=== PATIENT | male | born 1980 | race Caucasian/White ===

== ENCOUNTER → 2024-04-18 | Outpatient (CLI) | payer OTHER ==
[~2024-04-18] MED LIST: ISOVUE-300 61% 100ML VIAL As Ordered ONE; LIDOCAINE 1% MDV 20ML VIAL As Ordered ONE; PROHANCE 279.3MG/ML 5ML VIAL As Ordered ONE
== END ==
LOC: M RAD 06:18
PROVIDERS: ATTEND Physician Assistant
DX: M25.552 Pain in left hip (principal); S73.102A Unspecified sprain of left hip, initial encounter; X58.XXXA Exposure to other specified factors, initial encounter; Y92.9 Unspecified place or not applicable
CPT/HCPCS: 27093; 73723; 77002; A9576; Q9967

== ENCOUNTER 2025-06-11 07:19 | Day surgery (SDC) | payer OTHER ==
[~2025-06-11] VITALS: Ht 182.9 cm; Wt 90.7 kg
[~2025-06-11 07:19] MED LIST changes: -ISOVUE-300 61% 100ML VIAL As Ordered ONE; -LIDOCAINE 1% MDV 20ML VIAL As Ordered ONE; +LIDOCAINE 2% 100 MG/5 ML SDV (FOR ANES.) As Ordered ONE; +LISI20TA37 PO; +MILK175T PO; +OMEG10002 PO; +ONDANSETRON 4MG/2ML VIAL As Ordered ONE; -PROHANCE 279.3MG/ML 5ML VIAL As Ordered ONE; +ROCURONIUM BROMIDE 50MG/5ML VIAL As Ordered ONE; +SUGAMMADEX SODIUM 500 MG/5 ML VIAL As Ordered ONE; +TURM500C10 PO; +dexAMETHasone 4 MG/ML 1 ML VIAL As Ordered ONE
[2025-06-11] MEDS ORDERED: MIDAZOLAM INJ 2 MG/2 ML VIAL As Ordered ONE (07:59)
[2025-06-11] MEDS: METHYLENE BLUE 0.5% (5 MG/ML) 10 ML AMP As Ordered ONE (08:20)
[2025-06-11] MEDS: LIDOCAINE W/EPINEPHrine 1% 20 ML VIAL As Ordered ONE (08:20)
[2025-06-11] MEDS: OXYMETAZOLINE 0.05% NASAL SPRAY As Ordered ONE (08:20)
[2025-06-11] MEDS ORDERED: ACETAMINOPHEN 1000MG/100ML IV BAG As Ordered ONE (08:22)
[2025-06-11] MEDS ORDERED: GLYCOPYRROLATE INJ 0.2 MG/ML 2 ML VIAL As Ordered ONE (08:27)
[2025-06-11] MEDS: ONDANSETRON 4MG/2ML VIAL IV PRN (09:44)
[2025-06-11] MEDS ORDERED: ONDANSETRON 4MG/2ML VIAL IV PRN (09:55)
[2025-06-11] MEDS: MORPHINE 2 MG/ML 1 ML VIAL IV PRN (10:04)
[2025-06-11] MEDS: KETOROLAC 30 MG/ML 1 ML VIAL IV PRN (10:17)
== END 2025-06-11 10:45 | disposition home or self-care (01) ==
LOC: M SDC 07:19
PROVIDERS: ATTEND Otolaryngology
DX: J34.2 Deviated nasal septum (principal); J34.3 Hypertrophy of nasal turbinates; J34.89 Other specified disorders of nose and nasal sinuses; I10 Essential (primary) hypertension; G47.30 Sleep apnea, unspecified; Z79.899 Other long term (current) drug therapy
CPT/HCPCS: 30140; 30520; 93005; J0131; J1100; J1596; J1885; J2250; J2405; J3010; J3490